=== PATIENT | female | born 1960 | race Caucasian/White ===

== ENCOUNTER 2024-10-16 14:15 | Emergency (ER) | payer OTHER, SELFPAY ==
[2024-10-16 14:16] VITALS: BMI 36.6
[2024-10-16 14:31] VITALS: BP 134/85; PULSE 85; RESP 20; TEMP 36.8; O2SAT 95
--- NOTE | 2024-10-16 14:40 | XR_ITS ---
Examination: CT abdomen and pelvis without contrast. Coronal 3-D reconstructions. Sagittal 2-D reconstructions. Date and time of exam:October 16, 2024 1531 hours INDICATIONS: Abdominal pain lower back pain with hematuria beginning 4 days ago, history 2 mm distal left ureteral calculus on stone study October 13, 2019 CTDI: vol (mGy): 12.6 DLP: (mGycm): 749 Technique: Axial images of the abdomen have been obtained, 3 mm slice thickness Intravenous contrast material has not been administered. Low dose protocols were performed. One or more of the following dose reduction techniques were used; automated exposure control, adjustment of the mA and/or KV according to patient size, use of iterative reconstruction technique. Findings: No focal liver or splenic lesions Absent gallbladder No pancreatic or adrenal mass. 5 mm lower pole left renal calculus 2 mm right renal calculus No hydronephrosis or ureteral calculi No bowel obstruction Colonic diverticulosis Contracted urinary bladder, no bladder calculi IMPRESSION: Bilateral renal calculi, no hydronephrosis or ureteral calculi
--- NOTE | 2024-10-16 14:40 | PD.EDRME ---
Rapid Medical Screening Exam RME Arrival date/time: 10/16/24 14:15 64-year-old female presents to the emergency dept today for complaints of back pain and hematuria Chief Complaint: Back Pain/Injury Time Seen by Provider: 10/16/24 14:21 Vital signs: Vital Signs Temperature 98.3 F 10/16/24 14:31 Pulse Rate 85 10/16/24 14:31 Respiratory Rate 20 10/16/24 14:31 Blood Pressure 134/85 H 10/16/24 14:31 Pulse Oximetry (%) 95 10/16/24 14:31 Oxygen Delivery Method Room Air 10/16/24 14:31
[2024-10-16 15:14] LABS: Basophils # (Auto) 0.1 Thou/mm3 (0.0-0.2); Basophils % (Auto) 1 % (0-2.5); Eosinophils # (Auto) 0.3 Thou/mm3 (0.0-0.5); Eosinophils % (Auto) 3 % (0-10); Hematocrit 40.1 % (36.0-46.0); Hemoglobin 13.3 g/dL (12.0-16.0); Immature Granulocytes Auto 0.02 Thou/mm3 (0.00-0.00); Lymphocytes # (Auto) 1.8 Thou/mm3 (1.0-4.8); Lymphocytes % (Auto) 19 % (10-50); Mean Corpuscular HGB Conc 33.2 g/dl (31.0-37.0); Mean Corpuscular Hemoglobin 29.6 pg (25.0-35.0); Mean Corpuscular Volume 89 fL (80-100); Monocytes # (Auto) 0.7 Thou/mm3 (0.0-0.8); Monocytes % (Auto) 8 % (0-12); Neutrophils # (Auto) 6.3 Thou/mm3 (1.8-7.7); Neutrophils % (Auto) 69 % (37-80); Nucleated Red Blood Cell # 0.00 Thou/mm3 (0.00-0.00); Nucleated Red Blood Cell % 0 /100 WBC (0); Platelet Count 251 Thou/mm3 (140-440); RDW Standard Deviation 44.9 fL (36.4-46.3); Red Blood Count 4.50 Miln/mm3 (4.00-5.20); White Blood Count 9.2 Thou/mm3 (3.6-11.0)
[2024-10-16 15:42] LABS: Alanine Aminotransferase 9 U/L (10-49); Albumin, Serum 4.3 gm/dL (3.4-4.8); Albumin/Globulin Ratio 1.5 (1.2-2.2); Alkaline Phosphatase 123 U/L (46-116); Anion Gap 8 (7-16); Aspartate Amino Transferase 17 U/L (0-34); BUN/Creatinine Ratio 13 Ratio (12-20); Bilirubin,Total 0.5 mg/dL (0.3-1.2); Blood Urea Nitrogen 20 mg/dL (9-23); Calcium 9.5 mg/dL (8.3-10.6); Calcium (Corrected) 9.5 mg/dL (8.5-10.1); Carbon Dioxide 26.9 mMol/L (20.0-31.0); Chloride 110 mMol/L (98-107); Creatinine (Component) 1.5 mg/dL (0.6-1.3); Estimated Creatinine Clearance 39.7 mL/min (>60); Globulin 2.8 gm/dL (2.3-3.5); Glucose 117 mg/dL (74-106); Lipase 36 U/L (12-53); Osmolality,Calculated 292 (275-295); Potassium 4.2 mMol/L (3.4-5.1); Sodium 145 mMol/L (136-145); Total Protein 7.1 gm/dL (5.7-8.2); eGFR 39 See Note
[2024-10-16 16:05] LABS: Collection Type, Urine Clean Catch
[2024-10-16 16:26] LABS: Bilirubin,Urine Negative (Negative); Blood,Urine Negative (Negative); Clarity,Urine Clear (Clear/Hazy); Color,Urine Lt-Yellow (Lt Yel-Yel); Culture Indicated,Urine Not Indicated; Glucose, Urine 4+ (Negative); Ketones,Urine Negative (Negative); Leukocyte Esterase,Urine Negative (Negative); Nitrite,Urine Negative (Negative); PH,Urine 6.0 (5.0-7.0); Protein,Urine Negative (Neg - Trace); RBC,Urine 1 /hpf (0-3); Specific Gravity,Urine 1.019 (1.001-1.035); Squamous Epithelial Cell,Urine < 1 /hpf (0-5); Urobilinogen,Urine Negative mg/dL (0.0-1.0); WBC,Urine 1 /hpf (0-5)
--- NOTE | 2024-10-16 18:28 | PC.NURSE ---
CALLED PATIENT IN THE LOBBY AND OUTSIDE, NO ANSWER RECEIVED.
--- NOTE | 2024-10-16 19:22 | PC.NURSE ---
NO ANSWER AT ER LOBBY OR OUTSIDE ER TO BE RE EVALUATED.
== END 2024-10-16 19:24 | disposition left against medical advice (07) ==
PROVIDERS: Nurse Practitioner Primary Care; Emergency Provider Emergency Medicine; PCP Registered Nurse
DX: M54.9 Dorsalgia, unspecified (principal); R31.9 Hematuria, unspecified; Z53.29 Procedure and treatment not carried out because of patient's decision for other reasons
CPT/HCPCS: 36415; 74176; 80053; 81001; 83690; 85025; 99283

== ENCOUNTER 2025-03-25 13:50 | Emergency (ER) | payer MEDICARE, MEDICAID, SELFPAY ==
--- NOTE | 2025-03-25 14:27 | EKG_ITS ---
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
--- NOTE | 2025-03-25 14:28 | PD.EDADULT ---
ED General RME/HPI General Chief complaint: General Adult/Misc Complain Stated complaint: SENT BY PCP TO R/O PYELONEPHRITIS Time Seen by Provider: 03/25/25 14:27 Arrival date/time: 03/25/25 13:50 CC: Bilateral flank pain, nausea without vomiting, subjective fever HPI ongoing for the past 24 hours patient was referred by her PCP to rule out pyelonephritis. The patient states I have kidney problems . Patient denies painful urination bloody urination chest pain or shortness of breath. Related Data Home Medications ?Medication ?Instructions ?Recorded ?Confirmed albuterol sulfate 90 mcg/actuation 2 puff inhalation BID PRN 12/13/17 10/13/19 aerosol inhaler (Ventolin HFA) Shortness Of Breath Or Wheezing alprazolam 0.5 mg tablet 0.5 mg PO TID 12/13/17 10/13/19 diclofenac sodium 50 mg 50 mg PO TID 12/13/17 10/13/19 tablet,delayed release fluticasone 500 mcg-salmeterol 50 1 puff inhalation BID 12/13/17 10/13/19 mcg/dose blistr powdr for inhalation (Advair Diskus) lisinopril 40 mg tablet 40 mg PO DAILY 12/13/17 10/13/19 metformin 1,000 mg tablet 100 mg PO BID 12/13/17 10/13/19 (Glucophage) pantoprazole 40 mg tablet,delayed 40 mg PO DAILY 12/13/17 10/13/19 release (Protonix) propranolol 20 mg tablet 40 mg PO BID 12/13/17 10/13/19 venlafaxine 150 mg 150 mg PO QDAY 12/13/17 10/13/19 capsule,extended release 24 hr aspirin 81 mg tablet,delayed 81 mg PO QDAY 10/13/19 10/13/19 release nitroglycerin 0.4 mg sublingual 0.4 mg buccal PRN PRN Chest Pain 10/13/19 10/13/19 tablet Previous Rx's ?Medication ?Instructions ?Recorded hydrocodone 7.5 mg-acetaminophen 1 tab PO QID PRN pain #12 tabs 10/13/19 325 mg tablet tamsulosin 0.4 mg capsule (Flomax) 0.4 mg PO QDAY #7 caps 10/13/19 ibuprofen 800 mg tablet 800 mg PO TID PRN pain #30 tabs 03/29/21 Allergies Allergy/AdvReac Type Severity Reaction Status Date / Time No Known Allergies Allergy Verified 03/25/25 13:53 Review of Systems Review of Systems Narrative Review of Systems: GEN: No fever, no chills, no weight loss EYES: No discharge, no visual changes, no pain HEENT: No ear pain, no congestion, no sore throat PULM: No shortness of breath, no cough, no congestion CV: No chest pain, no dyspnea on exertion, no palpitations GI: No nausea, no vomiting, no diarrhea, no pain, no constipation : No frequency, no urgency, no dysuria MUSC/SKEL: No joint pain, no back pain SKIN: No rash PSYCH: No hallucinations, no depression HEME/LYMPH: No easy bleeding or bruising tendencies NEURO: No weakness, no headache Past Medical History Past Medical History NEUROLOGIC: Positive Migraine; Negative Neurological Disorders or Seizures CARDIAC: Positive Cardiac Disorders (Hx of GA), Myocardial Infarction (?), Angina (10/28/16) and Hypertension; Negative Congestive Heart Failure RESPIRATORY: Positive Asthma, Bronchitis and Sleep Apnea; Negative Chronic Obstructive Pulmonary Disease (COPD) GASTROINTESTINAL: Positive Gastrointestinal Disorders, Gall Bladder Disease and Obesity GENITOURINARY: Positive Genitourinary Disorders, Renal Disease (kidney stones in past) and Kidney Stones REPRODUCTIVE: Negative Breast Cancer or Pelvic Inflammatory Disease MUSCULOSKELETAL: Positive Musculoskeletal Disorders and Arthritis ENT: Positive Cataracts ENDOCRINE: Positive Endocrine Disorders and Diabetes Mellitus Type 2; Negative Diabetes Mellitus Type 1 HEMATOLOGIC: Negative Blood Disorders or Sickle Cell Disease PSYCHO/SOCIAL: Positive Depression and Anxiety OTHER HISTORY: Positive MRSA, Chicken Pox, Measles and Mumps; Negative Autoimmune Disease, Shingles, Falls, Anesthesia Reactions or Breast Cancer Family History FAMILY HISTORY: Positive Family Cancer Surgical History SURGICAL: Positive Abdominal Surgery, Hysterectomy and Section Social History SMOKING STATUS: Former smoker SECOND HAND EXPOSURE: No SUBSTANCE USE: does not use ED Exam Narrative Physical exam: [General: Obese not in cot no acute distress Head normocephalic HEENT: Within acceptable limits Neck is supple nontender Chest equal chest rise nontender to palpation Respiratory: Clear to auscultation no wheezes crackles or rubs CV: Rate rhythm is regular no murmurs rubs or clicks Abdomen is distended secondary to body habitus soft nontender no masses positive bowel sounds all 4 quadrants Back: No CVA tenderness no spinous process tenderness from cervical spine thoracic and lumbar spine Skin: Intact no petechiae rash induration ulceration or crepitus Extremities: Moving all extremity against resistance cap refill less than 2 seconds neurosensory intact Neuro: Awake alert oriented x3 Glascow coma 15 no focal deficits] Course Course Course Narrative: Patient brought to an ER room at 1845. Patient complaining of cold I am concerned the patient is febrile. At 1909, rectal temp was 102.8. Sepsis protocol initiated. Patient has an infected stone, this will need to be removed otherwise the patient will continue have problems including renal failure note currently the creatinine is 1.6. With a fever of 102+, 18,000 white count, and a 7 mm stone in the proximal left ureter with moderate to severe hydro creatinine of 1.6 and concerned this patient has infected stone. Patient will need urology to emergently remove the stone otherwise the patient will become septic. Currently the lactic is negative as is a procalcitonin. Quality Measures none Orders Category Date Time Status Hand Nailer STAT Care 03/25/25 19:08 Completed Continuous Pulse Oximetry STAT Care 03/25/25 19:08 Completed EKG (ED ONLY) *Do not use* NOW Care 03/25/25 14:27 Completed In and Out Catheter X1PRN Care 03/25/25 19:08 Completed Insert IV NOW Care 03/25/25 19:08 Completed NPO STAT Care 03/25/25 19:08 Completed Saline [Insert IV] NOW Care 03/25/25 16:49 Completed Strict Intake and Output Routine Care 03/25/25 19:08 Ordered Transfer to another facility [Transfer/Discharge] Stat Discharge 03/25/25 23:[address] abdomen pelvis wo con Stat Exams 03/25/25 18:38 Completed EKG (ED Only) Stat Exams 03/25/25 14:27 Draft XR chest 1V SEPSIS PROTOCOL Stat Exams 03/25/25 19:08 Completed B-Type Natriuretic Peptide Stat Lab 03/25/25 14:48 Completed B-Type Natriuretic Peptide Stat Lab 03/25/25 19:52 Completed Blood Culture (Lab) Stat Lab 03/25/25 19:48 Received CBC Stat Lab 03/25/25 14:48 Completed CBC Stat Lab 03/25/25 19:52 Completed Comprehensive Metabolic Panel Stat Lab 03/25/25 14:48 Completed Drug Screen,Urine Stat Lab 03/25/25 15:19 Completed LDH (Lactate Dehydrogenase) Stat Lab 03/25/25 19:52 Completed Lactate (Lactic Acid) Stat Lab 03/25/25 19:52 Completed Lipase Stat Lab 03/25/25 14:48 Completed Magnesium Stat Lab 03/25/25 14:48 Completed Magnesium Stat Lab 03/25/25 19:52 Completed Partial Thromboplastin Time Stat Lab 03/25/25 14:48 Completed Phosphorous Stat Lab 03/25/25 19:52 Completed Procalcitonin Stat Lab 03/25/25 19:52 Completed Prothrombin Time with INR Stat Lab 03/25/25 14:48 Completed Troponin I Stat Lab 03/25/25 19:52 Completed Urinalysis, C/S if Indicated Stat Lab 03/25/25 15:19 Completed Urinalysis, C/S if Indicated Stat Lab 03/25/25 20:45 Completed Urine Culture Stat Lab 03/25/25 15:19 Received Urine Culture Stat Lab 03/25/25 20:45 Received Acetaminophen Ivpb [Ofirmev Inj] Med 03/25/25 19:09 Discontinued 1,000 mg in 100 ml IV NOW Ringers Lactated 1000 ml [Lactated Ringers] 1,572 ml Med 03/25/25 19:08 Discontinued IV 1,572 mls/hr Sodium Chloride 0.9% 1000 ml [Ns] 1,000 ml Med 03/25/25 21:11 Discontinued IV 100 mls/hr cefTRIAXone/D5w 1gm IV premix [Rocephin/D5w 1gm IV Med 03/25/25 16:49 Discontinued premix] 1 gm in 50 ml IV X1 Oxygen Delivery NOW RT 03/25/25 19:08 Completed Vital Signs Vital signs: Vital Signs Temperature 98.3 F 03/25/25 14:35 Pulse Rate 91 03/25/25 14:35 Respiratory Rate 20 03/25/25 14:35 Blood Pressure 125/79 03/25/25 14:35 Pulse Oximetry (%) 97 03/25/25 14:35 Oxygen Delivery Method Room Air 03/25/25 14:35 Discharge Plan Plan Patient Disposition: [facility] Fac Service Needed for Transfer: Urology Patient condition on transfer: Stable Prescriptions/Referrals Prescriptions/Med Rec: No Action metformin [Glucophage] 1,000 mg Tablet 100 mg PO BID venlafaxine 150 mg Capsule,Extended Release 24hr 150 mg PO QDAY diclofenac sodium 50 mg Tablet,Delayed Release (Dr/Ec) 50 mg PO TID propranolol 20 mg Tablet 40 mg PO BID lisinopril 40 mg Tablet 40 mg PO DAILY alprazolam 0.5 mg Tablet 0.5 mg PO TID pantoprazole [Protonix] 40 mg Tablet,Delayed Release (Dr/Ec) 40 mg PO DAILY fluticasone propion-salmeterol [Advair Diskus] 500-50 mcg/dose Blister With Device 1 puff Inhalation BID albuterol sulfate [Ventolin HFA] 90 mcg/actuation Hfa Aerosol Inhaler 2 puff INHALATION BID PRN (Reason: Shortness Of Breath Or Wheezing) aspirin 81 mg Tablet,Delayed Release (Dr/Ec) 81 mg PO QDAY nitroglycerin 0.4 mg Tablet, Sublingual 0.4 mg BUCCAL PRN MDD 3 PRN (Reason: Chest Pain) tamsulosin [Flomax] 0.4 mg capsule 0.4 mg PO QDAY Qty: 7 0RF hydrocodone-acetaminophen 7.5-325 mg tablet 1 tab PO QID MDD 4 tabs PRN (Reason: pain) Qty: 12 0RF ibuprofen 800 mg tablet 800 mg PO TID PRN (Reason: pain) Qty: 30 0RF Referrals: Siobhan Meza, INTERNET MARKETING SPECIALIST [Primary Care Provider] - In 1 week Problem List Clinical Impression: Urolithiasis, Hydroureter, Renal insufficiency, Fever, Leukocytosis Patient/Caregiver Discharge Instructions Print Language: Upper Sorbian Stand Alone Forms: Emelia Award Info., Patient Portal Info Letter MDM Clinical Information Provided by: patient Medical Records reviewed [facility] Meds/Rx considered, not ordered None Labs/Rad/Tests considered, not ordered None Chronic Illness/Social Conditions which may negatively complicate care or outcome(s)-explain: None or not applicable EKG Interpretation EKG #1: EKG Interpretation: EKG performed at 1433 shows a ventricular of 93 HI interval 140 QRS of 82 QTc of 389 this is normal sinus rhythm. Labs Labs: interpreted by ga Lab(s) Interpretation(s): CBC shows a leukocytosis of 18,700. No anemia no thrombocytopenia Coags are within acceptable limits CMP shows creatinine of 1.6 no other electrolyte imbalances renal impairment mild elevation in the alk phos. No T. bili elevation BMP within acceptable limits Urine is turbid 1+ protein and 1+ blood 577 WBCs no squamous epithelials 1+ bacteria leukocyte esterase positive. UDS is negative Imaging Imaging interpretation: interpreted by me Imaging Interpretation(s): CTA abdomen pelvis shows the patient have a 7 mm proximal stone with moderate to severe hydro no cirrhosis. Medication Administration(s) Medication Administration History Discontinued Medications Ceftriaxone Sodium/Dextrose (Rocephin/D5w 1gm Iv Premix) 1 gm in 50 mls @ 100 mls/hr IV X1 ONE Stop: 03/25/25 17:18 Last Infusion: 03/25/25 20:27 Dose: Infused Documented By: [email or web address] Admin: 03/25/25 19:56 Dose: 100 mls/hr Documented By: KATE Lactated Ringer's (Lactated Ringers) 1,572 mls @ 1,572 mls/hr 30 ml/kg infuse over 60 min (1572 ml) IV .Q1H ONE Stop: 03/25/25 20:07 Last Infusion: 03/25/25 21:30 Dose: Infused Documented By: [email or web address] Admin: 03/25/25 19:57 Dose: 1,572 mls/hr Documented By: KATE Acetaminophen (Ofirmev Inj) 1,000 mg in 100 mls @ 250 mls/hr IV NOW ONE Stop: 03/25/25 19:32 Last Infusion: 03/25/25 20:26 Dose: Infused Documented By: [email or web address] Admin: 03/25/25 19:56 Dose: 250 mls/hr Documented By: KATE Sodium Chloride (Ns) 1,000 mls @ 100 mls/hr IV .Q10H SAVANNA Stop: 04/24/25 21:10 Last Infusion: 03/26/25 00:42 Dose: 0 mls/hr Documented By: [email or web address] Admin: 03/25/25 21:50 Dose: 100 mls/hr Documented By: KATE Diagnosis Differential Diagnosis ED Complaint MDM: Urolithiasis hydroureter infected urolithiasis. UTI
[2025-03-25 14:35] VITALS: BP 125/79; PULSE 91; RESP 20; TEMP 36.8; O2SAT 97; BMI 33.5
[2025-03-25 14:57] LABS: Basophils # (Auto) 0.1 Thou/mm3 (0.0-0.2); Basophils % (Auto) 0 % (0-2.5); Eosinophils # (Auto) 0.1 Thou/mm3 (0.0-0.5); Eosinophils % (Auto) 0 % (0-10); Hematocrit 43.9 % (36.0-46.0); Hemoglobin 14.9 g/dL (12.0-16.0); Immature Granulocytes Auto 0.07 Thou/mm3 (0.00-0.00); Lymphocytes # (Auto) 1.4 Thou/mm3 (1.0-4.8); Lymphocytes % (Auto) 8 % (10-50); Mean Corpuscular HGB Conc 33.9 g/dl (31.0-37.0); Mean Corpuscular Hemoglobin 29.9 pg (25.0-35.0); Mean Corpuscular Volume 88 fL (80-100); Monocytes # (Auto) 1.9 Thou/mm3 (0.0-0.8); Monocytes % (Auto) 10 % (0-12); Neutrophils # (Auto) 15.2 Thou/mm3 (1.8-7.7); Neutrophils % (Auto) 81 % (37-80); Nucleated Red Blood Cell # 0.00 Thou/mm3 (0.00-0.00); Nucleated Red Blood Cell % 0 /100 WBC (0); Platelet Count 276 Thou/mm3 (140-440); RDW Standard Deviation 47.3 fL (36.4-46.3); Red Blood Count 4.98 Miln/mm3 (4.00-5.20); White Blood Count 18.7 Thou/mm3 (3.6-11.0)
[2025-03-25 15:13] LABS: INR 1.0 (0.9-1.3); Partial Thromboplastin Time 32.8 Seconds (22.0-36.0); Prothrombin Time 10.4 Seconds (9.0-12.2)
[2025-03-25 15:17] LABS: B-Type Natriuretic Peptide 45 pg/mL (0-100)
[2025-03-25 15:18] LABS: Alanine Aminotransferase 8 U/L (10-49); Albumin, Serum 4.8 gm/dL (3.4-4.8); Albumin/Globulin Ratio 1.3 (1.2-2.2); Alkaline Phosphatase 133 U/L (46-116); Anion Gap 11 (7-16); Aspartate Amino Transferase 16 U/L (0-34); BUN/Creatinine Ratio 14 Ratio (12-20); Bilirubin,Total 1.0 mg/dL (0.3-1.2); Blood Urea Nitrogen 23 mg/dL (9-23); Calcium 10.0 mg/dL (8.3-10.6); Calcium (Corrected) 10.0 mg/dL (8.5-10.1); Carbon Dioxide 24.3 mMol/L (20.0-31.0); Chloride 101 mMol/L (98-107); Creatinine (Component) 1.6 mg/dL (0.6-1.3); Estimated Creatinine Clearance 36.9 mL/min (>60); Globulin 3.7 gm/dL (2.3-3.5); Glucose 98 mg/dL (74-106); Lipase 35 U/L (12-53); Magnesium 2.1 mg/dL (1.6-2.6); Osmolality,Calculated 275 (275-295); Potassium 4.0 mMol/L (3.4-5.1); Sodium 136 mMol/L (136-145); Total Protein 8.5 gm/dL (5.7-8.2); eGFR 36 See Note
[2025-03-25 15:31] LABS: Collection Type, Urine Clean Catch
[2025-03-25 15:47] LABS: Amphetamine/Methamp Scrn,U Negative (Negative); Barbiturate Screen,Urine Negative (Negative); Benzodiazepines Screen,Urine Negative (Negative); Benzoylecgonine Screen, Ur Negative (Negative); Fentanyl Screen,Urine Negative (Negative); Opiate Screen,Urine Negative (Negative); THC Screen,Urine Negative (Negative)
[2025-03-25 16:09] LABS: Bacteria,Urine 1+; Bilirubin,Urine Negative (Negative); Blood,Urine 1+ (Negative); Clarity,Urine Turbid (Clear/Hazy); Color,Urine Yellow (Lt Yel-Yel); Glucose, Urine 4+ (Negative); Ketones,Urine Negative (Negative); Leukocyte Esterase,Urine Positive (Negative); Nitrite,Urine Negative (Negative); PH,Urine 6.0 (5.0-7.0); Protein,Urine 1+ (Neg - Trace); RBC,Urine 5 /hpf (0-3); Specific Gravity,Urine 1.008 (1.001-1.035); Squamous Epithelial Cell,Urine < 1 /hpf (0-5); Urobilinogen,Urine Negative mg/dL (0.0-1.0); WBC,Urine 577 /hpf (0-5)
[2025-03-25 16:10] LABS: Culture Indicated,Urine Yes
--- NOTE | 2025-03-25 18:38 | XR_ITS ---
Examination: CT abdomen and pelvis without contrast. Coronal 3-D reconstructions. Sagittal 2-D reconstructions. Date and time of exam: March 25, 2025, 1852 hours INDICATIONS: Bilateral flank pain beginning today COMPARISON: October 16, 2024 CTDI: vol (mGy): 11 DLP: (mGycm): 602 Technique: Axial images of the abdomen have been obtained, 3 mm slice thickness Intravenous contrast material has not been administered. Low dose protocols were performed. One or more of the following dose reduction techniques were used; automated exposure control, adjustment of the mA and/or KV according to patient size, use of iterative reconstruction technique. Findings: No visualized liver or splenic lesion Gallbladder not visualized No pancreatic mass Moderate to advanced left hydronephrosis secondary to 7 mm proximal left ureteral calculus Aortic calcification No bowel obstruction Scattered colonic diverticulosis No bladder mass Advanced degenerative disc disease L4-L5 IMPRESSION: Moderate to advanced left hydronephrosis secondary to 7 mm proximal left ureteral calculus
--- NOTE | 2025-03-25 19:08 | XR_ITS ---
EXAMINATION: AP chest single view TECHNIQUE: AP portable upright chest single view Date and time: March 25, 2025, 1912 hours, comparison 12/13/2017 INDICATIONS: Sepsis protocol fever chest pain shortness of breath today. FINDINGS: Minor subsegmental atelectasis left base Normal heart size Ectatic thoracic aorta. No lobar pneumonia. Accentuation basilar bronchovascular markings. Prominent osteopenia IMPRESSION: Basilar bronchitis pattern
[2025-03-25 19:24] VITALS: BP 126/68; PULSE 107; RESP 18; TEMP 39.1; O2SAT 95
[2025-03-25 19:52] VITALS: PULSE 100
[2025-03-25] MEDS: ACETAMINOPHEN IVPB 1,000 MG/100 ML VIAL 250 MG IV (19:56)
[2025-03-25] MEDS: cefTRIAXone/D5w 1gm IV premix 1 GM/50 ML BAG IV (19:56)
[2025-03-25 20:05] LABS: Basophils # (Auto) 0.1 Thou/mm3 (0.0-0.2); Basophils % (Auto) 0 % (0-2.5); Eosinophils # (Auto) 0.1 Thou/mm3 (0.0-0.5); Eosinophils % (Auto) 0 % (0-10); Hematocrit 40.1 % (36.0-46.0); Hemoglobin 13.5 g/dL (12.0-16.0); Immature Granulocytes Auto 0.06 Thou/mm3 (0.00-0.00); Lactate (Lactic Acid) 1.0 mMol/L (0.4-2.0); Lymphocytes # (Auto) 1.2 Thou/mm3 (1.0-4.8); Lymphocytes % (Auto) 7 % (10-50); Mean Corpuscular HGB Conc 33.7 g/dl (31.0-37.0); Mean Corpuscular Hemoglobin 29.6 pg (25.0-35.0); Mean Corpuscular Volume 88 fL (80-100); Monocytes # (Auto) 1.8 Thou/mm3 (0.0-0.8); Monocytes % (Auto) 10 % (0-12); Neutrophils # (Auto) 14.6 Thou/mm3 (1.8-7.7); Neutrophils % (Auto) 82 % (37-80); Nucleated Red Blood Cell # 0.00 Thou/mm3 (0.00-0.00); Nucleated Red Blood Cell % 0 /100 WBC (0); Platelet Count 255 Thou/mm3 (140-440); RDW Standard Deviation 47.4 fL (36.4-46.3); Red Blood Count 4.56 Miln/mm3 (4.00-5.20); White Blood Count 17.8 Thou/mm3 (3.6-11.0)
[2025-03-25 20:27] LABS: B-Type Natriuretic Peptide 32 pg/mL (0-100)
[2025-03-25 20:37] LABS: LDH (Lactate Dehydrogenase) 159 U/L (120-246); Magnesium 2.1 mg/dL (1.6-2.6); Phosphorous 2.7 mg/dL (2.4-5.1); Procalcitonin 0.41 ng/ml (0.0-0.49); Troponin I < 0.002 ng/mL (0.0-0.045)
[2025-03-25 20:48] LABS: Collection Type, Urine Clean Catch
[2025-03-25 20:56] LABS: Amorphous Crystals,Urine Present (Absent); Bacteria,Urine Rare; Bilirubin,Urine Negative (Negative); Blood,Urine 1+ (Negative); Clarity,Urine Turbid (Clear/Hazy); Color,Urine Lt-Yellow (Lt Yel-Yel); Culture Indicated,Urine Yes; Glucose, Urine 4+ (Negative); Ketones,Urine 1+ (Negative); Leukocyte Esterase,Urine Positive (Negative); Nitrite,Urine Negative (Negative); PH,Urine 6.0 (5.0-7.0); Protein,Urine Trace (Neg - Trace); RBC,Urine 8 /hpf (0-3); Specific Gravity,Urine 1.008 (1.001-1.035); Squamous Epithelial Cell,Urine < 1 /hpf (0-5); Urobilinogen,Urine Negative mg/dL (0.0-1.0); WBC,Urine 185 /hpf (0-5)
[2025-03-25 21:13] VITALS: BP 118/71; PULSE 96; RESP 19; TEMP 38.5; O2SAT 100
[2025-03-25] MEDS: SODIUM CHLORIDE 0.9% 1000 ML 1,000 ML 100 ML IV (21:50)
--- NOTE | 2025-03-25 23:10 | PD.EDADDENDU ---
Emergency Room Addendum Addendum Narrative: I took over the care from Charly Scruggs NP at _11PM_ on __. See previous notes for complete H & P and ED course. I reviewed all diagnostic test results. Diagnoses include: Infected kidney stone I discussed the case with our Dr. Aguirre ([facility] Urologist). About the presentation and exam and diagnostics and treatments here. And need of further care there. Agreed to accept the patient. During my watch, the patient remained stable. Mt Drake MD
[2025-03-25 23:33] VITALS: BP 115/76; PULSE 95; RESP 19; TEMP 37; O2SAT 98
--- NOTE | 2025-03-26 00:37 | PC.NURSE ---
this nurse gave report to ems edi from [facility] ed. pt ao, not in distress all vitals stable
== END 2025-03-26 00:39 | disposition short-term general hospital (02) ==
PROVIDERS: Registered Nurse General Practice; Emergency Provider Family Medicine; PCP Registered Nurse
DX: N13.6 Pyonephrosis (principal)
CPT/HCPCS: 36415; 71045; 74176; 80053; 80307; 81001; 83605; 83615; 83690; 83735; 83880; 84100; 84145; 84484; 85025; 85610; 85730; 87040; 87077; 87086; 87186; 93005; 96361; 96365; 99285; J0131; J0696; J7030; J7120